=== PATIENT | female | born 1995 | race Caucasian/White ===

== ENCOUNTER 2018-02-11 19:43 | Emergency (ER) | payer MEDICAID ==
[2018-02-11] MEDS ORDERED: Acetaminophen TAB* 325 MG PO ONE (21:03)
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
[2018-02-11 21:27] VITALS: BP 120/58
== END 2018-02-11 21:23 | disposition home or self-care (01) ==
LOC: ED 19:43
DX: S05.11XA Contusion of eyeball and orbital tissues, right eye, initial encounter (principal); W22.09XA Striking against other stationary object, initial encounter; Y93.01 Activity, walking, marching and hiking; Y92.410 Unspecified street and highway as the place of occurrence of the external cause
CPT/HCPCS: 99281; A9270-GY

== ENCOUNTER 2018-07-01 19:01 | Emergency (ER) | payer MEDICAID ==
[2018-07-01 19:19] VITALS: BP 133/80
--- NOTE | 2018-07-01 19:50 | RAD ---
Indication: RIGHT ankle pain and swelling following inversion injury 4 weeks ago. Continued lateral pain and swelling. Limited range of motion. Comparison: No relevant prior exams available on the [facility] for comparison. Technique: AP, mortise, and lateral views RIGHT ankle. REPORT AND IMPRESSION: #. Negative for fracture or malalignment. #. Suggestion of a small talocrural joint effusion. #. Mild soft tissue swelling over the lateral malleolus.
--- NOTE | 2018-07-01 20:09 | UC ---
Lower Extremity/Ankle HPI - HPI Summary HPI Summary: 22-year-old female presents with right ankle pain and swelling for past 4 weeks following an inversion injury to her ankle. She was then evaluated the initial time of the injury. States has had some improvement with the swelling and pain however feels that there is some reduced range of motion in the ankle and is concerned about the persistent pain and swelling. She was able to bear weight immediately after the injury and has been ambulating without difficulty. Denies erythema, ecchymosis, or decreased sensation. - History of Current Complaint Chief Complaint: UCLowerExtremity Stated Complaint: ANKLE INJURY Time Seen by Provider: 07/01/18 19:17 Hx Obtained From: Patient Hx Last Menstrual Period: 06/27/18 ?: No Onset/Duration: Lasting Weeks Severity Initially: Moderate Severity Currently: Mild Pain Intensity: 3 Aggravating Factor(s): Standing, Ambulation Alleviating Factor(s): OTC Meds Able to Bear Weight: Yes - Allergies/Home Medications Allergies/Adverse Reactions: Allergies Allergy/AdvReac Type Severity Reaction Status Date / Time No Known Allergies Allergy Verified 07/01/18 19:19 Home Medications: Home Medications NK [No Home Medications Reported] 07/01/18 [History Confirmed 07/01/18] PMH/Surg Hx/FS Hx/Imm Hx - Additional Past Medical History Additional PMH: Noncontributory - Surgical History Surgical History: Yes Surgery Procedure, Year, and Place: tonsillectomy age 1 - Family History Known Family History: Positive: None - Social History Occupation: Student Lives: Alone Alcohol Use: Occasionally Substance Use Type: None Smoking Status (MU): Never Smoked Tobacco Review of Systems Constitutional: Negative Skin: Negative Motor: Decreased ROM Neurovascular: Negative Musculoskeletal: Arthralgia Is Patient Immunocompromised?: No All Other Systems Reviewed And Are Negative: Yes Physical Exam Triage Information Reviewed: Yes Appearance: Well-Appearing, No Pain Distress, Well-Nourished Vital Signs: Initial Vital Signs Temp 98.6 F 07/01/18 19:12 Pulse 73 07/01/18 19:12 Resp 15 07/01/18 19:12 BP 133/80 07/01/18 19:12 Pulse Ox 98 07/01/18 19:12 Vital Signs Reviewed: Yes Respiratory: Positive: No respiratory distress Cardiovascular: Positive: Pulses Normal, Brisk Capillary Refill Musculoskeletal: Positive: Strength Intact, ROM Intact, Edema @ - Lateral malleolus, Other: - Mild tenderness over lateral malleolus and anterior ankle Neurological: Positive: Other: - Sensation intact Skin Exam: Normal Diagnostics - Radiology No standard instances Xray Interpretation: No Acute Changes - Negative for fracture or malalignment. Suggestion of a small talocrural joint effusion. Mild soft tissue swelling over the lateral malleolus. Radiology Interpretation Completed By: Radiologist Lower Extremity Course/Dx - Course Course Of Treatment: 22-year-old female with 4 week history of right ankle pain and swelling following an inversion injury. Physical exam reveals some soft tissue swelling over the lateral malleolus with some mild tenderness with palpation. X-ray was negative for fracture or dislocation. Recommend continued use of [id number] acetaminophen or ibuprofen as needed for pain. Will provide referral to orthopedics for follow-up. - Differential Dx/Diagnosis Differential Diagnosis/HQI/PQRI: Fracture (Closed), Sprain, Tendonitis Provider Diagnoses: Right ankle sprain Discharge - Sign-Out/Discharge Documenting (check all that apply): Patient Departure - Discharge Plan Condition: Stable Disposition: HOME Patient Education Materials: Ankle Sprain (DC) Referrals: No Primary Care Phys,NOPCP [Primary Care Provider] - Magdy Traore MD [Medical Doctor] - (Call for an appointment) Additional Instructions: You may continue to walk and bear weight as tolerated. Recommend avoiding high stress activity such as running and jumping until evaluated by orthopedics. Use [id number] acetaminophen (Tylenol) or ibuprofen (Advil, Motrin) according to directions as needed for pain. I have given you a referral to orthopedics, Dr. Traore. Please call his office for an appointment. - Billing Disposition and Condition Condition: STABLE Disposition: Home
== END 2018-07-01 20:16 | disposition home or self-care (01) ==
LOC: UCEAST 19:01
DX: S93.401A Sprain of unspecified ligament of right ankle, initial encounter (principal); X50.1XXA Overexertion from prolonged static or awkward postures, initial encounter; Y93.9 Activity, unspecified; Y92.9 Unspecified place or not applicable
CPT/HCPCS: 99211; G0463

== ENCOUNTER 2019-12-15 12:15 | Emergency (ER) | payer OTHER ==
[2019-12-15 12:48] VITALS: BP 130/63
[2019-12-15 13:06] LABS: Influenza A Molecular NEGATIVE (Negative); Influenza B Molecular NEGATIVE (Negative)
--- NOTE | 2019-12-15 13:09 | UC ---
FLU HPI - HPI Summary HPI Summary: Pt presents with concern of "getting sick" . Pt states she has myalgia, cough, and nasal congestion X 1 day. - History of Current Complaint Stated Complaint: FLU SXS Time Seen by Provider: 12/15/19 12:43 Hx Obtained From: Patient Hx Last Menstrual Period: 12/01/2019 ?: No Onset/Duration: Sudden Onset Severity Currently: Mild Severity Initially: Mild Pain Intensity: 4 Associated Signs & Symptoms: Positive: Myalgia, Cough, Sore Throat, Nasal Congestion Related Hx: Possible Flu/Infectious Exposure - Risk Factors Influenza Risk Factors: Negative - Allergy/Home Medications Allergies/Adverse Reactions: Allergies Allergy/AdvReac Type Severity Reaction Status Date / Time No Known Allergies Allergy Verified 12/15/19 12:44 Home Medications: Home Medications [id number] Es (Nf) [Excedrin Extra Strength 250-250-65 mg (NF)] 1 tab PO Q6H PRN 12/15/19 [History Confirmed 12/15/19] PMH/Surg Hx/FS Hx/Imm Hx Previously Healthy: Yes Other History Of: Negative For: Anticoagulant Therapy - Surgical History Surgical History: Yes Surgery Procedure, Year, and Place: Tonsillectomy, ~1995 - Family History Known Family History: Positive: Cardiac Disease - Social History Occupation: Student Lives: With Family Alcohol Use: Occasionally Substance Use Type: None Smoking Status (MU): Never Smoked Tobacco Have You Smoked in the Last Year: No - Immunization History Vaccination Up to Date: Yes Review of Systems All Other Systems Reviewed And Are Negative: Yes Constitutional: Positive: Chills Skin: Positive: Negative Eyes: Positive: Negative ENT: Positive: Sore Throat, Sinus Congestion Respiratory: Positive: Cough Cardiovascular: Positive: Negative Gastrointestinal: Positive: Negative Genitourinary: Positive: Negative Motor: Positive: Negative Neurovascular: Positive: Negative Musculoskeletal: Positive: Myalgia Neurological: Positive: Negative Psychological: Positive: Negative Is Patient Immunocompromised?: No Physical Exam Triage Information Reviewed: Yes Appearance: Well-Appearing Vital Signs: Initial Vital Signs Temp 98.3 F 12/15/19 12:42 Pulse 70 12/15/19 12:42 Resp 16 12/15/19 12:42 BP 130/63 12/15/19 12:42 Pulse Ox 100 12/15/19 12:42 Vital Signs Reviewed: Yes Eye Exam: Normal ENT Exam: Normal ENT: Positive: Hearing grossly normal Dental Exam: Normal Neck exam: Normal Respiratory Exam: Normal Cardiovascular Exam: Normal Musculoskeletal Exam: Normal Neurological Exam: Normal Psychological Exam: Normal Skin Exam: Normal Flu Course/Dx - Differential Dx/Diagnosis Differential Diagnosis/HQI/PQRI: Influenza, Upper Respiratory Infection Provider Diagnosis: Viral syndrome Discharge ED - Sign-Out/Discharge Documenting (check all that apply): Patient Departure All imaging exams completed and their final reports reviewed: No Studies - Discharge Plan Condition: Stable Disposition: HOME Patient Education Materials: Viral Syndrome (ED) Referrals: [facility] [place] [facility]ERR[facility] [Outside] No Primary Care Phys,NOPCP [Primary Care Provider] - Additional Instructions: Please follow up with your PCP as needed. - Billing Disposition and Condition Condition: STABLE Disposition: Home
== END 2019-12-15 13:14 | disposition home or self-care (01) ==
LOC: UCCORT 12:15
DX: B34.9 Viral infection, unspecified (principal); J02.9 Acute pharyngitis, unspecified; R05 Cough; M79.10 Myalgia, unspecified site; J34.89 Other specified disorders of nose and nasal sinuses
CPT/HCPCS: 99211; G0463